=== PATIENT | female | born 1960 | race Caucasian/White ===

== ENCOUNTER 2025-01-14 12:40 | Outpatient (AMB) | payer MEDICARE, MEDICAID, SELFPAY ==
--- NOTE | 2025-01-14 12:47 | A.OFFPC_ITS ---
Vital Signs 01/14/25 12:55 Height 5 ft 5 in Weight 169 lb BMI 28.1 BP 134/80 Blood Pressure Location Rt brachial Position Sitting Respiration 16 Pulse 94 Pulse Source Pulse Oximeter Temp 97.7 F Temp Source Oral Pulse Oximetry (%) 97 Oxygen Delivery Method Room Air Intake Visit Reasons: Annual PE/OK PER Dr Orozco/Last attempt Intake Note: Pt is here today for her PE Allergies fluoxetine [From PROZAC] Allergy (Intermediate, Verified 01/14/25 13:12) SKIN CRAWLING, felt electric shocks with it mold [MOLD] Allergy (Intermediate, Verified 01/14/25 13:12) CAUSES ASTHMA ATTACK Medication List - Last Reconciled 01/14/25 by Nida Almanazr MD albuterol sulfate 2.5 mg inhalation Q6H albuterol sulfate 90 mcg/actuation 2 puffs inhalation Q4-6H PRN atomoxetine 40 mg PO QAM buspirone 7.5 mg PO BID cetirizine 10 mg PO DAILY PRN fluticasone propionate 50 mcg/actuation 1 spray intranasal DAILY omega-3 fatty acids-fish oil 360-1,200 mg (Fish Oil) 1 cap PO DAILY sodium chloride 0.9% (Simply Saline) 1 spray intranasal BID PRN venlafaxine ER 150 mg PO QAM Tobacco use date assessed: 01/14/25 Fall risk assessment: 1 Fall in past year Last assessed Fall Risk: 01/14/25 Dental Screening Dental Screen Date: 01/14/25 Did you have a dental visit in the last 12 months?: Yes Did you have a dental problem in the last 6 months where you did not have access to dental care?: No Was dental information given to patient?: Patient has dentist [facility] Medical History (Updated 01/14/25 @ 13:13 by Nida Almanzar MD) Impaired hearing Autism Depression Annual visit for general adult medical examination with abnormal findings Surgical History History of tonsillectomy Family History Father HTN (hypertension) Diabetes mellitus Mother Cardiomyopathy HTN (hypertension) Diabetes mellitus Pneumonia CVD (cardiovascular disease) Brother Diabetes mellitus Polycystic kidney disease Cancer of pancreas Daughter Angelman's syndrome Son No problems noted. Social History Housing: House Patient Tobacco Use Status: Tobacco use Unknown e-Cigarette/Vaping Use: Currently Using Current occupational status: retired Cognitive needs: No Hearing needs: No Vision needs: No Questionnaire PHQ-9 Over the last 2 weeks, how often have you been bothered by any of the following problems? 1. Little interest or pleasure in doing things: not at all 2. Feeling down, depressed, or hopeless: not at all 3. Trouble falling or staying asleep, or sleeping too much: not at all 4. Feeling tired or having little energy: not at all 5. Poor appetite or overeating: not at all 6. Feeling bad about yourself - or that you are a failure or have let yourself or your family down: not at all 7. Trouble concentrating on things, such as reading the newspaper or watching television: not at all 8. Moving or speaking so slowly that other people could have noticed. Or the opposite - being so fidgety or restless that you have been moving around a lot more than usual: not at all 9. Thoughts that you would be better off or of hurting yourself in some way: not at all Total score: 0 Depression Screening Interpretation: Negative Depression Screening Done: Yes 14048 - PHQ-9 Billing: Yes Source: Developed by Drs. Jimbo Benson, Ivet Eaton, Raj Manuel and colleagues, with an educational mateo from [employer]. Thrive Questionnaire Date Thrive assessed: 01/14/25 I am a: Patient What is your living situation today?: I have a steady place to live Within the past 12 months, did the food you bought not last and you didn't have the money to get more?: Never true Within the past 12 months, did you worry whether your food would run out before you got money to buy more?: Never true Do you have trouble paying for medicines?: No Do you have trouble getting transportation to medical appointments?: No Do you have trouble paying your heating and electricity bill?: No Do you have trouble taking care of your child, family member or friend?: No Do you have trouble with day-to-day activities such as bathing, preparing meals, shopping, managing finances, etc.?: No Are you currently unemployed and looking for a job?: No Are you interested in more education?: No THRIVE Score: 0 AUDIT C Alcohol Use Questionnaire (AUDIT-C) 1. How often do you have a drink containing alcohol?: Never Total Score: 0 JOSEPH-7 AMB Questionnaire JOSEPH-7 Date JOSEPH - 7 assessed: 01/14/25 Feeling nervous, anxious, or on edge: 0 = Not at all Not being able to stop or control worryin = Not at all Worrying too much about different things: 0 = Not at all Trouble relaxin = Not at all Being so restless that it is hard to sit still: 0 = Not at all Becoming easily annoyed or irritable: 0 = Not at all Feeling afraid as if something awful might happen: 0 = Not at all Total JOSEPH-7 score (0-4 normal; 5-9 mild; 10-14 moderate; 15-21 severe): 0 Source: Developed by Drs. Jimbo Benson, Ivet Eaton, Raj Manuel and colleagues, with an educational mateo from [employer]. Physical exam (Primary Care) Vital Signs: Last Vital Signs Temp 97.7 F 01/14/25 12:55 Pulse 94 01/14/25 12:55 Resp 16 01/14/25 12:55 BP 134/80 01/14/25 12:55 Pulse Ox 97 01/14/25 12:55 Oxygen Delivery Method Room Air 01/14/25 12:55 BMI result Body Mass Index 28.1 Tobacco/Smoking Status: Tobacco use Status Tobacco use date assessed 01/14/25 01/14/25 12:50 Patient Tobacco Use Status Tobacco use Unknown 01/14/25 12:47 e-Cigarette/Vaping Use Currently Using 01/14/25 13:07 PHQ-9: PHQ-9 Score PHQ-9: Total score 0 01/14/25 13:13 Depression Screening Interpretation: Negative Thrive Assessment: Date of Thrive Assessment Date Thrive assessed 01/14/25 01/14/25 13:07 Immunizations pneumoc 20-paul conj-dip cr(PF) 0.5 mL IM syringe Performing Provider: Nida Almanzar MD Performing Location: [facility] [place] [facility] Administered by: Anthony Zhao CMA on 01/14/25 13:31 Dose Route Admin Location Dispensed Lot Number Expiration Date NDC Hardware Installation Coordinator 0.5 mL IM Right Deltoid 0.5 mL [id number] 03/21/26 [id number] [id number] VIS Given Date VIS Provided VIS Publication Date 01/14/25 Single Vaccine 22 Eligibility Eligibility Date Funding Source Not [facility] Eligible 01/14/25 Private Coding Level of Care Code New Pt Prev Care >65yr (81407) Diagnoses Annual visit for general adult medical examination with abnormal findings Z00.01 Depression F32.A Autism F84.0 Impaired hearing H91.90 Encounter for screening for diabetes mellitus Z13.1 Encounter for screening for osteoporosis Z13.820 Encounter for screening for malignant neoplasm of colon Z12.11 Additional Codes PHQ-9 - 89600 - PHQ-9 Billing: Yes ([id number]) Assessment & Plan Assessment & Plan (1) Annual visit for general adult medical examination with abnormal findings: Code(s): Z00.01 - Encounter for general adult medical examination with abnormal findings Category: Medical (2) Depression: Comment: seedane Eden and BRENDA DUMONT Code(s): F32.A - Depression, unspecified Category: Medical (3) Autism: Code(s): F84.0 - Autistic disorder Category: Medical (4) Impaired hearing: Code(s): H91.90 - Unspecified hearing loss, unspecified ear Category: Medical (5) Encounter for screening for diabetes mellitus: Code(s): Z13.1 - Encounter for screening for diabetes mellitus (6) Encounter for screening for osteoporosis: Code(s): Z13.820 - Encounter for screening for osteoporosis (7) Encounter for screening for malignant neoplasm of colon: Code(s): Z12.11 - Encounter for screening for malignant neoplasm of colon Orders: Orders Lipid Panel Today F32.A - Depression, unspecified, F84.0 - Autistic disorder, H91.90 - Unspecified hearing loss, unspecified ear, Z00.01 - Encounter for general adult medical examination with abnormal findings, Z13.1 - Encounter for screening for diabetes mellitus, Z13.220 - Encounter for screening for lipoid disorders, Z78.0 - Asymptomatic menopausal state Basic Metabolic Panel Fasting Today F32.A - Depression, unspecified, F84.0 - Autistic disorder, H91.90 - Unspecified hearing loss, unspecified ear, Z00.01 - Encounter for general adult medical examination with abnormal findings, Z13.1 - Encounter for screening for diabetes mellitus, Z13.220 - Encounter for screening for lipoid disorders, Z78.0 - Asymptomatic menopausal state Aspartate Amino Transferase Today F32.A - Depression, unspecified, F84.0 - Autistic disorder, H91.90 - Unspecified hearing loss, unspecified ear, Z00.01 - Encounter for general adult medical examination with abnormal findings, Z13.1 - Encounter for screening for diabetes mellitus, Z13.220 - Encounter for screening for lipoid disorders, Z78.0 - Asymptomatic menopausal state Vitamin D 25-OH Total Today F32.A - Depression, unspecified, F84.0 - Autistic disorder, H91.90 - Unspecified hearing loss, unspecified ear, Z00.01 - Encounter for general adult medical examination with abnormal findings, Z13.1 - Encounter for screening for diabetes mellitus, Z13.220 - Encounter for screening for lipoid disorders, Z78.0 - Asymptomatic menopausal state XR DEXA axial skeleton Today Z12.31 - Encounter for screening mammogram for malignant neoplasm of breast, Z13.820 - Encounter for screening for osteoporosis, Z78.0 - Asymptomatic menopausal state Alanine Aminotransferase Today F32.A - Depression, unspecified, F84.0 - Autistic disorder, H91.90 - Unspecified hearing loss, unspecified ear, Z00.01 - Encounter for general adult medical examination with abnormal findings, Z13.1 - Encounter for screening for diabetes mellitus, Z13.220 - Encounter for screening for lipoid disorders, Z78.0 - Asymptomatic menopausal state MM tomosynthesis screening BI Today Z12.31 - Encounter for screening mammogram for malignant neoplasm of breast, Z13.820 - Encounter for screening for osteoporosis, Z78.0 - Asymptomatic menopausal state Referrals Gastroenterology Referral Z12.11 - Encounter for screening for malignant neoplasm of colon
[2025-01-14 12:55] VITALS: BP 134/80; PULSE 94; RESP 16; TEMP 36.5; O2SAT 97; BMI 28.1
== END 2025-01-14 14:06 | disposition home or self-care (01) ==
PROVIDERS: PCP Internal Medicine; Visit Provider Internal Medicine
DX: Z23 Encounter for immunization (principal)

== ENCOUNTER → 2025-01-14 12:40 | Outpatient (BNVA) | payer MEDICARE, MEDICAID, SELFPAY | PROVIDERS: PCP Internal Medicine; Visit Provider Internal Medicine | DX: Z00.01 Encounter for general adult medical examination with abnormal findings (principal); Z23 Encounter for immunization; F32.A Depression, unspecified; F84.0 Autistic disorder | CPT/HCPCS: 90471; 90677; 96127; 99387 ==